=== PATIENT | male | born 1975 | race African-American/Black ===

== ENCOUNTER 2018-04-06 23:23 | Emergency (ER) | payer OTHER, MEDICAID ==
[~2018-04-06] VITALS: Ht 185.4 cm; Wt 111.1 kg
[~2018-04-06 23:23] MED LIST: ALBU0.63 NEB; ALBU8.5H5 INH; HYDR-3237 PO; OXYC-302 PO; STERIOD INH
[2018-04-06] MEDS ORDERED: KETOROLAC 30 MG/1 ML ONE (23:53)
[2018-04-07] MEDS ORDERED: KETOROLAC 30 MG/1 ML IM ONE
[2018-04-07 00:08] LABS: MICROSCOPIC NOT IND
[2018-04-07 00:16] LABS: CULTURE INDICATED? NO
[2018-04-07 00:49] LABS: BASOPHILS # (AUTO) 0.07 x10^3/uL (0-0.1); BASOPHILS % (AUTO) 1 % (0-1); EOSINOPHILS # (AUTO) 0.14 x10^3/uL (0-0.4); EOSINOPHILS % (AUTO) 2 % (1-7); LYMPHOCYTES # (AUTO) 2.03 x10^3/uL (1-3.4); LYMPHOCYTES % (AUTO) 27 % (22-44); MD NO; MEAN CORPUSCULAR HEMOGLOBIN 31.5 pg (27.5-34.5); MEAN CORPUSCULAR HGB CONC 34.2 g/dL (33.2-36.2); MEAN PLATELET VOLUME 8.8 fL (7.4-10.4); MONOCYTES # (AUTO) 0.61 x10^3/uL (0.2-0.8); MONOCYTES % (AUTO) 8 % (2-9); NEUTROPHILS # (AUTO) 4.64 x10^3/uL (1.8-6.8); NEUTROPHILS % (AUTO) 62 % (42-75); PLATELET COUNT 282 x10^3/uL (130-400); RED BLOOD COUNT 5.31 x10^6/uL (4.38-5.82); RED CELL DISTRIBUTION WIDTH 14.4 % (9.4-14.8)
[2018-04-07 00:56] LABS: ALBUMIN 3.7 g/dL (3.4-5.0); ANION GAP 8 mmol/L (5-15); CALCIUM 8.8 mg/dL (8.5-10.1); CHLORIDE 110 mmol/L (98-107); CREATININE 1.01 mg/dL (0.7-1.3)
[2018-04-07 01:09] VITALS: BP 117/75
== END 2018-04-07 01:12 | disposition home or self-care (01) ==
LOC: ED 23:56
DX: R10.9 Unspecified abdominal pain (principal); I10 Essential (primary) hypertension; Z90.49 Acquired absence of other specified parts of digestive tract
CPT/HCPCS: 36415; 74176; 80048; 81003; 82040; 85025; 96372; 99284; J1885

== ENCOUNTER 2019-06-09 00:26 | Emergency (ER) | payer MEDICAID, OTHER ==
[~2019-06-09] VITALS: Ht 185.4 cm; Wt 107.8 kg
--- NOTE | 2019-06-09 00:36 | NUR ---
PLEASANT GENTLEMAN HERE NOTING THAT FOR THE LAST TWO WEEKS HE HAS HAD PAIN AND SWELLING L SIDE FACE, SCHEDULED IN TWO WEEKS FOR ROOT CANAL. LAST MOTRIN 2 DAYS AGO. TAKES NO MEDICATION AND DENIES MEDICAL HISTORY
[2019-06-09] MEDS ORDERED: KETOROLAC 30 MG/1 ML ONE (00:53)
[2019-06-09] MEDS ORDERED: KETOROLAC 30 MG/1 ML IM ONE (01:00)
[2019-06-09] MEDS ORDERED: ACETAMINOPHEN 500 MG TABLET ONE (02:08)
[2019-06-09] MEDS ORDERED: ACETAMINOPHEN 500 MG TABLET PO ONE (02:30)
[2019-06-09 02:58] VITALS: BP 148/96
== END 2019-06-09 03:00 | disposition home or self-care (01) ==
LOC: ED 01:43
DX: R51 Headache (principal); I10 Essential (primary) hypertension; Z90.49 Acquired absence of other specified parts of digestive tract
CPT/HCPCS: 96372; 99283; J1885